=== PATIENT | male | born 1990 | race Caucasian/White ===

== ENCOUNTER 2019-11-03 10:18 | Outpatient (CLI) | payer BC, SELFPAY ==
[2019-11-03 12:14] LABS: Post Vasectomy Sperm Presence None Seen (None Seen)
== END 2019-11-03 10:19 | disposition home or self-care (01) ==
PROVIDERS: PCP Family Medicine; Visit Provider Family Medicine
DX: Z98.52 Vasectomy status (principal)
CPT/HCPCS: 88160